=== PATIENT | male | born 1995 | race Caucasian/White ===

== ENCOUNTER 2021-09-03 13:16 | Emergency (ER) | payer OTHER ==
[~2021-09-03] VITALS: Ht 185.4 cm; Wt 95.3 kg
[2021-09-03] MEDS ORDERED: DOXYCYCLINE 10100 MG PO (15:34)
[2021-09-03] MEDS ORDERED: CLINDAMYCIN HC300 MG PO (15:34)
[2021-09-03] MEDS ORDERED: APAP W/CODEINE1 TA2 PO (15:34)
[2021-09-03 16:14] VITALS: BP 131/63
== END 2021-09-03 16:15 | disposition home or self-care (01) ==
LOC: M.ERS 13:16
DX: S91.312A Laceration without foreign body, left foot, initial encounter (principal); Z90.89 Acquired absence of other organs; Z88.0 Allergy status to penicillin; Z88.2 Allergy status to sulfonamides; W54.0XXA Bitten by dog, initial encounter; Y93.89 Activity, other specified; Y92.89 Other specified places as the place of occurrence of the external cause; Y99.8 Other external cause status